=== PATIENT | female | born 1970 | race Caucasian/White ===

== ENCOUNTER 2016-06-07 14:14 | Inpatient (IN) | payer OTHER ==
[2016-06-07 18:34] LABS: Hematocrit 47 % (35-47); Mean Corpuscular Volume 103 fL (80-97); Mean Platelet Volume 10 um3 (7.4-10.4); Red Blood Count 4.53 10^6/ul (4.0-5.4); Red Cell Distribution Width 15 % (10.5-15); White Blood Count 13.2 10^3/ul (3.5-10.8)
[2016-06-07 18:35] LABS: Add Diff/Slide Review? Manual Diff Added; Comments Flag Yes
[2016-06-07 18:38] LABS: Urine Bacteria Absent (Absent); Urine Bilirubin Negative (Negative); Urine Glucose Negative (Negative); Urine Nitrite Negative (Negative)
[2016-06-07 18:55] LABS: Hemoglobin 15.7 g/dl (12.0-16.0)
[2016-06-07 18:56] LABS: Mean Corpuscular Hemoglobin 35 pg (27-31)
[2016-06-07 18:57] LABS: Mean Corpuscular HGB Conc 33 g/dl (31-36)
[2016-06-07 19:14] LABS: Immature Granulocytes 1 % (0-9); Neutrophil % 84 % (38-83); Toxic Granulation 2+
--- NOTE | 2016-06-07 19:23 | RAD ---
INDICATION: Left flank abdominal pain. COMPARISON: There are no prior studies available for comparison. TECHNIQUE: A CT scan of the abdomen and pelvis was performed without intravenous or oral contrast. Contiguous axial sections were obtained from the lung bases through the symphysis pubis. Images were reconstructed in the coronal and sagittal planes. FINDINGS: The lung bases are clear. No pleural effusion is present. The liver is moderately enlarged and decreased in attenuation consistent with fatty infiltration no focal abnormality is seen on this noncontrast study. No calcified gallstones are seen. The spleen is normal in size without focal abnormality. The pancreas is normal in size. There is fluid around the pancreatic tail and adjacent to the spleen and adjacent to the anterior aspect of the left kidney and within the left paracolic gutter. These findings are nonspecific although suggestive possibly of pancreatitis. Recommend clinical correlation. There is also a small hernia of fat in the posterior lateral abdominal wall on the left side adjacent to the left kidney. The adrenal glands and kidneys are normal in size. No hydronephrosis is seen. No renal calculi are noted. No ureteral or bladder calculi are seen. The aorta is normal in caliber with mild calcific plaque present. No significant enlarged retroperitoneal lymph nodes are seen. The stomach, small and large bowel appear nondistended. The appendix is not well visualized. There is no evidence for diverticulitis or colitis. The uterus is retroverted and normal in size. There is a tampon present within the vagina. As noted above there is a small amount of free intraperitoneal fluid in the left upper quadrant. No free intraperitoneal air is seen. No significant focal osseous abnormality is seen. Result of this exam was discussed with the referring clinician. IMPRESSION: 1. THERE IS FREE INTRAPERITONEAL FLUID IN THE LEFT UPPER QUADRANT WHICH TRACKS AROUND THE PANCREATIC TAIL. THIS IS ALSO ADJACENT TO THE SPLEEN AND LEFT KIDNEY. THE FINDINGS ARE NONSPECIFIC ALTHOUGH SUGGESTIVE OF PANCREATITIS. RECOMMEND CLINICAL CORRELATION. IN ADDITION A CONTRAST-ENHANCED CT OF THE ABDOMEN AND PELVIS MAY BE HELPFUL IN FURTHER EVALUATION. 2. MODERATE HEPATOMEGALY AND HEPATIC STEATOSIS.
[2016-06-07] MEDS ORDERED: NS 0.9% 1000 ML* 1,000 ML IV ONE (20:05)
--- NOTE | 2016-06-07 20:11 | ED ---
Jm Griffiths Billy, scribed for Thien Shi MD on 06/07/16 at 1801 . GI/ HPI - HPI Summary HPI Summary: Patient is a 46 year-old female coming to [facility] presenting with constant left flank pain starting yesterday, progressively worse this morning. She states that she had similar pain in the past, but not this severe. Pain severity 10/10 at this time. She reports nausea but denies vomiting. When asked, she states she was unsure if she had hematuria. Denies history of back problems. PMHx of kidney stones last year, for which she was seen at Urgent Care. However, she states that she failed to follow-up. - History of Current Complaint Chief Complaint: EDFlankPain Time Seen by Provider: 06/07/16 18:01 Stated Complaint: POSS KIDNEY STONE Hx Obtained From: Patient Onset/Duration: Started Days Ago, Still Present Timing: Constant Severity: Moderate Current Severity: Moderate Pain Intensity: 10 Location of Pain: Flank - left Associated Signs and Symptoms: Positive: Nausea. Negative: Vomiting Aggravating Factor(s): Nothing Alleviating Factor(s): Nothing - Allergy/Home Medications Allergies/Adverse Reactions: Allergies Allergy/AdvReac Type Severity Reaction Status Date / Time No Known Allergies Allergy Verified 06/07/16 14:28 PMH/Surg Hx/FS Hx/Imm Hx History: Reports: Hx Kidney Stones Psychiatric History: Reports: Hx Substance Abuse Infectious Disease History: No Infectious Disease History: Reports: Hx Hepatitis Denies: Traveled Outside the [place] in Last 30 Days - Family History Known Family History: Positive: Other - aortic aneurysm - Social History Hx Substance Use: Yes - Heroin, last use 15 yrs ago Hx Tobacco Use: Yes Smoking Status (MU): Current Every Day Smoker Review of Systems Positive: Nausea. Negative: Vomiting Positive: flank pain All Other Systems Reviewed And Are Negative: Yes Physical Exam - Summary Physical Exam Summary: VITAL SIGNS: Reviewed. GENERAL: Patient is a well developed and nourished female who is lying comfortable in the stretcher. Patient is not in any acute respiratory distress. HEAD AND FACE: Normocephalic and atraumatic. EYES: PERRLA, EOMI x 2, No injected conjunctiva. EARS: Hearing grossly intact. Ear canals and tympanic membranes are WNL. MOUTH: Oropharynx within normal limits. NECK: Supple, trachea is midline, no adenopathy, no JVD. CHEST: Symmetric, no tenderness at palpation LUNGS: Clear to auscultation bilaterally. No wheezing or crackles. CVS: RRR,, S1 and S2 present, no murmurs or gallops appreciated. ABDOMEN: Soft, positive LUQ tenderness. No signs of distention. Positive bowel sounds. No rebound no guarding, and no masses palpated. No abdominal bruit or pulsations. Positive Left CVAT's EXTREMITIES: FROM in all major joints, no edema, no cyanosis or clubbing. NEURO: Alert and oriented x 3. No acute neurological deficits. Speech is normal. SKIN: Dry and warm Triage Information Reviewed: Yes Vital Signs On Initial Exam: Initial Vitals Temp Pulse Resp BP Pulse Ox 97.9 F 92 16 144/87 100 06/07/16 14:29 06/07/16 14:29 06/07/16 14:29 06/07/16 14:29 06/07/16 14:29 Vital Signs Reviewed: Yes Diagnostics - Vital Signs Vital Signs Temp Pulse Resp BP Pulse Ox 06/07/16 17:13 99.1 F 06/07/16 17:12 97 18 152/90 99 06/07/16 16:16 84 16 144/80 100 06/07/16 15:38 98.4 F 06/07/16 14:29 97.9 F 92 16 144/87 100 - Laboratory Lab Results: Lab Results 06/07/16 06/07/16 Range/Units 18:16 18:16 WBC 13.2 H (3.5-10.8) 10^3/ul RBC 4.53 (4.0-5.4) 10^6/ul Hgb 15.7 (12.0-16.0) g/dl Hct 47 (35-47) % MCV 103 H (80-97) fL MCH 35 H (27-31) pg MCHC 33 (31-36) g/dl RDW 15 (10.5-15) % Plt Count 181 (150-450) 10^3/ul MPV 10 (7.4-10.4) um3 Immature Gran % (Auto) 1 (0-9) % Absolute Neuts (auto) 11.2 H (1.5-7.7) 10^3/ul Absolute Lymphs (auto) 1.3 (1.0-4.8) 10^3/ul Absolute Monos (auto) 0.7 (0-0.8) 10^3/ul Absolute Eos (auto) 0 (0-0.6) 10^3/ul Absolute Basos (auto) 0 (0-0.2) 10^3/ul Absolute Nucleated RBC 0 10^3/ul Neutrophils % 84 H (38-83) % Band Neutrophils % 1 (0-8) % Lymphocytes % 10 L (25-47) % Monocytes % 5 (0-13) % Toxic Granulation 2+ Normal RBC Morphology Not Reportable Urine Color Yellow Urine Appearance Clear Urine pH 6.0 (5-9) Ur Specific [place] 1.017 (1.010-1.030) Urine Protein Negative (Negative) Urine Ketones Negative (Negative) Urine Blood 1+ H (Negative) Urine Nitrate Negative (Negative) Urine Bilirubin Negative (Negative) Urine Urobilinogen Negative (Negative) Ur Leukocyte Esterase Negative (Negative) Urine WBC (Auto) Absent (Absent) Urine RBC (Auto) Trace(0-2/hpf) (Absent) Ur Squamous Epith Cells Present H (Absent) Urine Bacteria Absent (Absent) Urine Glucose Negative (Negative) Result Diagrams: 06/07/16 18:16 Lab Statement: Any lab studies that have been ordered have been reviewed, and results considered in the medical decision making process. - CT abd/pel CT Interpretation Completed By: Radiologist - 1. THERE IS FREE INTRAPERITONEAL FLUID IN THE LEFT UPPER QUADRANT WHICH TRACKS AROUND THE PANCREATIC TAIL. THIS IS ALSO ADJACENT TO THE SPLEEN AND LEFT KIDNEY. THE FINDINGS ARE NONSPECIFIC ALTHOUGH SUGGESTIVE OF PANCREATITIS. RECOMMEND CLINICAL CORRELATION. IN ADDITION A CONTRAST-ENHANCED CT OF THE ABDOMEN AND PELVIS MAY BE HELPFUL IN FURTHER EVALUATION. 2. MODERATE HEPATOMEGALY AND HEPATIC STEATOSIS. Re-Evaluation - Re-Evaluation First Eval Re-Evaluation Time: 20:05 Comment: Plan for admission reviewed and discussed. Imaging results reviewed. GIGU Course/Dx - Course Assessment/Plan: Patient is a 46 year-old female coming to [facility] presenting with constant left flank pain starting yesterday, progressively worse this morning. She states that she had similar pain in the past, but not this severe. Pain severity 10/10 at this time. She reports nausea but denies vomiting. When asked, she states she was unsure if she had hematuria. Denies history of back problems. PMHx of kidney stones last year, for which she was seen at Urgent Care. However, she states that she failed to follow-up. Bloodwork WNL except for WBC of 13.2. UA is negative for acute pathology. CT abd/pel shows acute pancreatitis. We are unable to run chemistries due to lipemic blood. Significantly increased triglycerides may be the cause of the pancreatitis. I discussed with Dr. Chery who will admit to hospitalist services. In the ER course, patient was given IV fluids. Patient is A&Ox3, hemodynamically stable. - Diagnoses Differential Diagnoses - Female: Bowel Obstruction, Constipation, Colitis, Urinary Tract Infection, Ureteral Calculi Provider Diagnoses: Acute pancreatitis - Physician Notifications Discussed Care Of Patient With: Dr. De La Rosa (radiology) @ 1915: CT abd/pel reviewed. Dr. Chery (hospitalist) @ 1949: accepts admission. [facility] @ 1956: they state that they are unable to test chemistries because samples are too lipemic. Discharge - Discharge Plan Condition: Stable Disposition: ADMITTED TO [facility] Referrals: No Primary Care Phys,NOPCP [Primary Care Provider] - The documentation as recorded by the Jm mehta Billy accurately reflects the service I personally performed and the decisions made by me, Thien Shi MD.
[2016-06-07] MEDS ORDERED: Nicotine Inhaler* 10 MG AMP INH PRN (20:26)
[2016-06-07] MEDS ORDERED: Ondansetron INJ* 2 MG/ML VIAL IV PRN (20:26)
[2016-06-07] MEDS ORDERED: Mouth Piece, Nicotine* 1 EACH CARTRIDGE INH PRN (20:44)
[2016-06-07] MEDS ORDERED: LORazepam TAB(*) 1 MG PO SCH (21:00)
[2016-06-07] MEDS: Morphine INJ* 2 MG/ML 1 ML CARPUJECT IV PRN ×2 (21:39→22:18)
[2016-06-07] MEDS ORDERED: Morphine INJ* 2 MG/ML 1 ML CARPUJECT ONE (22:15)
--- NOTE | 2016-06-07 22:31 | HP ---
HISTORY AND PHYSICAL: DATE OF ADMISSION: 06/07/16 PRIMARY CARE PROVIDER: None. ATTENDING PHYSICIAN: Alejandro Chery MD* (dictated by Ila Milligan NP ). CHIEF COMPLAINT: Left flank pain. HISTORY OF PRESENT ILLNESS: Ms. Kaiser is a 46-year-old female with past medical history significant for heroin abuse, alcohol abuse and tobacco abuse who presents to the emergency room with complaints of left flank pain. The patient states that she developed left flank pain approximately a day ago with associated nausea. The patient denies any vomiting. The patient denies any urinary symptoms such as urinary frequency, urgency, or dysuria. The patient states that her flank pain has progressively gotten worse today, so she decided to present to the emergency room for evaluation of her symptoms. While in the emergency room, the patient had a CT scan showing free intraperitoneal fluid in the left upper quadrant, which tracks around the pancreatic tail. The fluid is also adjacent to the spleen and left kidney. The findings are nonspecific, although suggestive of pancreatitis. The patient had a CBC significant for white blood cell count 13.2, hemoglobin of 15.7, hematocrit 47, platelet count 181. The patient had a urinalysis significant for 1+ blood and trace RBC's and squamous epithelial cells present. The patient was unable to have chemistries drawn as the blood sample provided was too lipemic. Based on the patient's presentation and concern for pancreatitis, hospitalists were asked to evaluate the patient for admission. The patient denies fever, chills, chest pain. The patient reports shortness of breath due to pain and nausea for 1 week. PAST MEDICAL HISTORY: 1. Kidney stones. 2. Tobacco abuse. 3. Alcohol abuse. 4. History of heroin use. PAST SURGICAL HISTORY: No previous surgeries. HOME MEDICATIONS: Include Suboxone 8/2 mg sublingual twice daily. ALLERGIES: No known drug allergies. FAMILY HISTORY: The patient has a maternal uncle with a history of heart disease and diabetes mellitus. The patient has a maternal grandfather who had a history of pancreatic cancer and the paternal side of her family has a history of ovarian cancer. SOCIAL HISTORY: The patient smokes approximately half a pack a day. She has a 25- year smoking history. The patient reports drinking alcohol daily, drinking an average of 6 pack of beer daily. The patient occasionally has marijuana. 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 The patient's partner, Rafael Younger, will be her surrogate decision maker in the event she is unable to make decisions for herself. REVIEW OF SYSTEMS: I performed a 14-point review of systems. All the pertinent positives and negatives are mentioned in the history of present illness. Remaining review of systems are negative. PHYSICAL EXAMINATION GENERAL APPEARANCE: The patient is alert, pleasant, appears to be in no acute distress. VITAL SIGNS: Temperature 98.4, heart rate 92, respiratory rate 18, O2 sat 99% on room air, blood pressure 122/81. HEENT: Normocephalic, atraumatic. Pupils are equal and reactive to light. Extraocular movements are intact. NECK: Supple. There is no lymphadenopathy noted. RESPIRATORY: There is no accessory muscle use. Lungs are clear to auscultation bilateral. CARDIOVASCULAR: Regular rate and rhythm. S1 and S2 are present. There are no murmurs, rubs or gallops heard. ABDOMEN: Soft, tender in the left upper quadrant. Bowel sounds present. The patient does have left-sided CVA tenderness. EXTREMITIES: There is no lower extremity edema. DP and PT pulses are 2+ and symmetric. MUSCULOSKELETAL: There is no clubbing or cyanosis noted. The patient exhibits good strength in all extremities. NEUROLOGIC: The patient is alert and oriented x4. Cranial nerves II through XII are grossly intact. PSYCHOLOGICAL: The patient is calm and cooperative. SKIN: There is no rashes or abnormalities seen. DIAGNOSTIC STUDIES/LABORATORY DATA: Again the patient was unable to have a chemistry profile completed due to lipemic blood. White blood cell count 13.2, hemoglobin 15.7, hematocrit 47, and platelet count 181. Urinalysis showed specific gravity of 1.017, 1+ blood, trace rbc's, squamous epithelial cells present. Abdomen and pelvis CT scan from today. Radiologist's impression: There is free intraperitoneal fluid in the left upper quadrant, which tracks around the pancreatic tail. This is also adjacent to the spleen and left kidney. The findings are nonspecific, although suggestive of pancreatitis. Recommend clinical correlation. In addition, a contrast enhanced CT of the abdomen and pelvis may be helpful in further evaluation. Moderate hepatomegaly and hepatic steatosis. IMPRESSION: Ms. Kaiser is a 46-year-old female with past medical history significant for remote history of heroin abuse, tobacco abuse, alcohol abuse, and kidney stones, who presents to the emergency room with a 1-day history of left flank pain. She will be admitted as an inpatient for acute pancreatitis. ASSESSMENT: 1. Pancreatitis. The patient had CT findings consistent with pancreatitis. Due to the patient having high lipemic blood, I suspect the patient's pancreatitis could be caused by significantly increased triglycerides. The patient's pancreatitis could also be related to her alcohol intake. We will have the patient fast overnight and attempt to re-run chemistries including lipase and amylase in the morning. The patient will receive IV hydration and IV pain medication. If the patient does not improve, we will ask GI to consult on the patient. 2. Alcohol abuse. The patient will be placed on a WAM protocol. 3. Tobacco abuse. The patient will have nicotine replacement. 4. History of heroin use. The patient's last used heroin approximately 15 years ago. For now, we will hold her Suboxone while she is receiving pain medications for acute pain. 5. Fluids, electrolytes, nutrition. The patient will be on clear liquids and receive LR at 150 an hour. 6. Code status. Full code. 7. DVT prophylaxis. The patient is at low risk and will be encouraged to ambulate. 8. Disposition. Inpatient. TIME SPENT: The time for this admission was 60 minutes, 35 minutes was spent face- to-face with the patient and family discussing medications, past medical history and the events leading up to her arrival today and performing a physical examination. The case has been reviewed with the attending, Dr. Chery, who agrees with the plan of care. Reviewed by CASANDRA FRANCO 06/19/15 1028 [id number]/[facility] #: [id number] LUIS
[2016-06-08] MEDS: Morphine INJ* 2 MG/ML 1 ML CARPUJECT IV PRN ×2 (02:11→06:44)
[2016-06-08 06:43] LABS: Add Diff/Slide Review? Manual Diff Added; Comments Flag Yes; Hematocrit 39 % (35-47); Hemoglobin 13.4 g/dl (12.0-16.0); Mean Corpuscular HGB Conc 34 g/dl (31-36); Mean Corpuscular Hemoglobin 35 pg (27-31); Mean Corpuscular Volume 103 fL (80-97); Mean Platelet Volume 10 um3 (7.4-10.4); Red Blood Count 3.82 10^6/ul (4.0-5.4); Red Cell Distribution Width 15 % (10.5-15); White Blood Count 8.7 10^3/ul (3.5-10.8)
[2016-06-08 06:48] LABS: ALT 116 U/L (7-52); Alkaline Phosphatase 233 U/L (34-104); Amylase 36 U/L (29-103); BUN/Creatinine Ratio 12.1 (8-20); Blood Urea Nitrogen 4 mg/dL (6-24); C Reactive Protein 40.83 mg/L (< 5.00); CO2 Carbon Dioxide 22 mmol/L (22-32); Calcium 7.7 mg/dL (8.6-10.3); Chloride 98 mmol/L (101-111); EGFR African American 277.2 (>60); EGFR Non-African American 215.5 (>60); Globulin 2.8 g/dL (2-4); Glucose 40 mg/dL (70-100); HDL Cholesterol 12.5 mg/dL; Lipase 212 U/L (11.0-82.0); Sodium 131 mmol/L (133-145); Total Protein 5.8 g/dL (6.4-8.9)
[2016-06-08 07:16] LABS: Cholesterol 736 mg/dL; Triglycerides 1462 mg/dL
[2016-06-08 08:15] LABS: Immature Granulocytes 1 % (0-9); Neutrophil % 79 % (38-83)
[2016-06-08 08:16] LABS: RBC Morphology Normal (Normal)
[2016-06-08] MEDS: Folic Acid TAB* 1 MG PO SCH (08:19)
[2016-06-08] MEDS: Thiamine TAB* 100 MG TAB PO SCH (08:19)
[2016-06-08] MEDS: Multivitamins/Minerals TAB PO SCH (08:19)
[2016-06-08] MEDS ORDERED: HYDROmorphone INJ* 1 MG/ML CARPUJECT SYRINGE ONE (08:47)
[2016-06-08] MEDS ORDERED: HYDROmorphone INJ* 1 MG/ML CARPUJECT SYRINGE IV ONE (09:00)
[2016-06-08] MEDS: HYDROmorphone INJ* 2 MG/ML CARPUJECT SYRINGE IV SLOW PU PRN ×2 (12:07→22:19)
--- NOTE | 2016-06-08 13:09 | PN ---
Subjective Date of Service: 06/08/16 Interval History: Patient seen and examined at bedside. Pt states that she continues to have left sided abdominal and flank pain, the pain has improved with the change in pain medication. Pt denies fever, chills, shortness of breath, chest discomfort, N/V/ D. Family History: Unchanged from Admission Social History: Unchanged from Admission Past Medical History: Unchanged from Admission Objective Active Medications: Acetaminophen (Tylenol Tab*) 650 mg PO Q4H PRN Reason: PAIN Device (Nicotine Mouth Piece*) 1 each INH ONCE PRN Reason: CRAVINGS Folic Acid (Folvite Tab*) 1 mg PO DAILY REGINALD Hydromorphone HCl (Dilaudid Iv*) 2 mg IV SLOW PU Q4H PRN Reason: PAIN Lactated Ringer's (Lactated Ringers 1000 Ml Bag*) 1,000 mls @ 150 mls/hr IV PER RATE REGINALD Lorazepam (Ativan Tab(*)) 0 mg PO .PER W[facility] SCORE [facility] Reason: Protocol Multivitamins/Minerals (Theragran/Minerals Tab*) 1 tab PO DAILY [facility] Nicotine (Nicotine Inhaler*) 10 mg INH Q2H PRN Reason: CRAVING Ondansetron HCl (Zofran Inj*) 4 mg IV Q6H PRN Reason: NAUSEA Thiamine HCl (Vitamin B-1 Tab*) 100 mg PO DAILY [facility] Vital Signs 06/07/16 06/07/16 06/07/16 21:39 21:44 21:51 Temperature 98.1 F Pulse Rate 98 Respiratory 20 20 20 Rate Blood Pressure 149/88 (mmHg) O2 Sat by Pulse 99 Oximetry 06/08/16 06/08/16 06/08/16 00:21 02:11 02:12 Temperature 100.5 F 99.3 F Pulse Rate 89 94 Respiratory 18 18 18 Rate Blood Pressure 132/76 144/78 (mmHg) O2 Sat by Pulse 96 97 Oximetry 06/08/16 06/08/16 06/08/16 03:11 04:20 06:44 Temperature 98.2 F Pulse Rate 86 Respiratory 16 18 18 Rate Blood Pressure 138/82 (mmHg) O2 Sat by Pulse 100 Oximetry 06/08/16 06/08/16 06/08/16 07:44 08:00 08:14 Temperature 98.0 F Pulse Rate 106 Respiratory 18 18 12 Rate Blood Pressure 139/65 (mmHg) O2 Sat by Pulse Oximetry 06/08/16 12:22 Temperature 98.4 F Pulse Rate 99 Respiratory 14 Rate Blood Pressure 124/84 (mmHg) O2 Sat by Pulse 100 Oximetry Oxygen Devices in Use Now: None Appearance: NAD, laying in bed. Eyes: No Scleral Icterus, PERRLA Ears/Nose/Mouth/Throat: NL Teeth, Lips, Gums, Mucous Membranes Moist Neck: NL Appearance and Movements; NL JVP, Trachea Midline Respiratory: Symmetrical Chest Expansion and Respiratory Effort, Clear to Auscultation Cardiovascular: NL Sounds; No Murmurs; No JVD, RRR Abdominal: - - Bowel sounds hypoactive, Abdomen soft, tender in the left upper quad and slightly distended. Positive for CVa tenderness on the left. Extremities: No Edema Skin: No Rash or Ulcers Neurological: Alert and Oriented x 3, NL Muscle Strength and Tone Lines/Tubes/Other Access: Clean, Dry and Intact Peripheral IV - x 2, site benign Nutrition: Taking PO's Result Diagrams: 06/08/16 05:41 06/08/16 05:41 Additional Lab and Data: Assess/Plan/Problems-Billing Assessment: Ms. Kaiser is a 46 yo female with PMH significant for remote history of heroin abuse and alcohol abuse who presented to the emergency room with complaints of left flank pain and was found to have pancreatitis. - Patient Problems (1) Pancreatitis Code(s): K85.90 - ACUTE PANCREATITIS WITHOUT NECROSIS OR INFECTION, UNSP SNOMED Code(s): 36401523 Comment: - Unable to get labs in the ER d/t Lipemic blood - Blood this AM was hemolized, will recheck labs now - Suspect this could be related to ETOH, elevated lipids - If LFTs are up on redraw, will get a GB ultrasound - If not improving will ask GI to consult (2) Alcohol abuse Code(s): F10.10 - ALCOHOL ABUSE, UNCOMPLICATED SNOMED Code(s): 09263074 Comment: - WAM score 1-4 - Continue WAM protocol for now (3) Tobacco abuse Code(s): Z72.0 - TOBACCO USE SNOMED Code(s): 104801921 Comment: - Continue nicotine replacement (4) History of heroin abuse Code(s): Z87.898 - PERSONAL HISTORY OF OTHER SPECIFIED CONDITIONS SNOMED Code( s): 899667662 Comment: - Hold Suboxone while Pt has acute pain and needs narcotics - Resume at discharge (5) DVT prophylaxis Code(s): KSD6646 - SNOMED Code(s): 919553682 Comment: - Encourage ambulation (6) Full code status Code(s): Z78.9 - OTHER SPECIFIED HEALTH STATUS SNOMED Code(s): 038983575 Status and Disposition: Inpatient. Estimated length of stay > 2 day. Discharge to home when medically stable.
[2016-06-08 13:54] LABS: ALT 111 U/L (7-52); Alkaline Phosphatase 254 U/L (34-104); Amylase 31 U/L (29-103); BUN/Creatinine Ratio 8.6 (8-20); Blood Urea Nitrogen 3 mg/dL (6-24); CO2 Carbon Dioxide 25 mmol/L (22-32); Calcium 8.1 mg/dL (8.6-10.3); Chloride 99 mmol/L (101-111); Cholesterol 562 mg/dL; EGFR Non-African American 201.4 (>60); Globulin 2.9 g/dL (2-4); Glucose 138 mg/dL (70-100); HDL Cholesterol 15.7 mg/dL; LDL Cholesterol 479 mg/dL; Lipase 154 U/L (11.0-82.0); Sodium 132 mmol/L (133-145); Total Protein 5.9 g/dL (6.4-8.9); Triglycerides 336 mg/dL
[2016-06-08] MEDS ORDERED: HYDROmorphone INJ* 1 MG/ML CARPUJECT SYRINGE IV SLOW PU ONE (15:04)
--- NOTE | 2016-06-08 15:38 | RAD ---
Indication: Pancreatitis. Assess for cholelithiasis. Comparison: June 07, 2016 CT. Technique: RIGHT upper quadrant ultrasound. Report: 19.2 cm cephalocaudal liver is echogenic consistent with fatty infiltration. No focal hepatic lesions or intrahepatic biliary dilatation evident. Minimally prominent 6.5 mm common bile duct. No intraductal stones visualized. Distended gallbladder measuring up to 11.5 x 2.8 x 3.9 cm with normal 1.7 mm wall is without pathologic finding. Negative for sonographic Huntley's sign. The pancreatic tail is partially obscured due to bowel gas with the visualized pancreas unremarkable. Negative for pancreatic duct dilatation. Negative for ascites. 11.0 x 4.6 x 5.8 cm RIGHT kidney with normal cortical echogenicity is remarkable for mild caliectasis. No conspicuous RIGHT renal stones . Negative for perinephric fluid. IMPRESSION: 1. Negative for cholelithiasis or sonographic findings of acute cholecystitis. 2. Minimally prominent 6.5 mm common bile duct. No intraductal stones visualized. 3. No sonographic abnormality of the partially visualized pancreas evident. 4. Negative for ascites. 5. Mild caliectasis of the RIGHT kidney.
[2016-06-08] MEDS: Nicotine PATCH 14 MG/24 HR* PATCH TRANSDERM SCH (15:39)
[2016-06-08] MEDS: Acetaminophen TAB* 325 MG PO PRN (18:08)
[2016-06-08] MEDS: Nicotine Patch Removal NOTE FOLLOW UP SCH (20:33)
[2016-06-09] MEDS: Acetaminophen TAB* 325 MG PO PRN ×4 (02:06→20:31)
[2016-06-09 06:14] LABS: Albumin 2.7 g/dL (3.2-5.2); EGFR African American 250.7 (>60); EGFR Non-African American 194.9 (>60); Total Protein 5.7 g/dL (6.4-8.9)
[2016-06-09 07:32] LABS: BUN/Creatinine Ratio 2.8 (8-20); Potassium 3.1 mmol/L (3.5-5.0)
[2016-06-09] MEDS: Folic Acid TAB* 1 MG PO SCH (07:46)
[2016-06-09] MEDS: Multivitamins/Minerals TAB PO SCH (07:46)
[2016-06-09] MEDS: Thiamine TAB* 100 MG TAB PO SCH (07:46)
[2016-06-09] MEDS: Nicotine PATCH 14 MG/24 HR* PATCH TRANSDERM SCH (08:00)
[2016-06-09] MEDS ORDERED: Potassium Chlor TAB* 20 MEQ TAB.ER PO ONE (10:48)
--- NOTE | 2016-06-09 14:39 | PN ---
Subjective Date of Service: 06/09/16 Interval History: Pt is feeling better. She has been using tylenol alone for pain. She states she feels mild discomfort in the epigastrum and mid back. No nausea or vomiting. No BMs but she is passing quite a bit of gas. She states her abdominal discomfort is improved after passing gas. Objective Active Medications: Acetaminophen (Tylenol Tab*) 650 mg PO Q4H PRN PRN Reason: PAIN Last Admin: 06/09/16 13:50 Dose: 650 mg Buprenorphine/Naloxone (Suboxone 8-2 Mg Sl Tab*) 1 tab.sl SL BID [facility] Device (Nicotine Mouth Piece*) 1 each INH ONCE PRN PRN Reason: CRAVINGS Last Admin: 06/07/16 23:27 Dose: 1 each Folic Acid (Folvite Tab*) 1 mg PO DAILY [facility] Last Admin: 06/09/16 07:46 Dose: 1 mg Lorazepam (Ativan Tab(*)) 0 mg PO .PER WAM SCORE [facility] PRN Reason: Protocol Multivitamins/Minerals (Theragran/Minerals Tab*) 1 tab PO DAILY [facility] Last Admin: 06/09/16 07:46 Dose: 1 tab Nicotine (Nicotine Inhaler*) 10 mg INH Q2H PRN PRN Reason: CRAVING Last Admin: 06/07/16 23:27 Dose: 10 mg Nicotine (Nicotine Patch 14 Mg/24 Hr*) 1 patch TRANSDERM DAILY@0800 [facility] Last Admin: 06/09/16 08:00 Dose: Not Given Ondansetron HCl (Zofran Inj*) 4 mg IV Q6H PRN PRN Reason: NAUSEA Pharmacy Profile Note (Nicotine Patch Removal Note*) 1 note FOLLOW UP 2100 [facility] Last Admin: 06/08/16 20:33 Dose: 1 note Thiamine HCl (Vitamin B-1 Tab*) 100 mg PO DAILY [facility] Last Admin: 06/09/16 07:46 Dose: 100 mg Vital Signs 06/08/16 06/08/16 06/08/16 15:08 15:41 16:08 Temperature 98.5 F Pulse Rate 82 Respiratory 18 16 16 Rate Blood Pressure 122/69 (mmHg) O2 Sat by Pulse 95 Oximetry 06/08/16 06/08/16 06/08/16 20:00 22:19 23:19 Temperature Pulse Rate Respiratory 16 18 16 Rate Blood Pressure (mmHg) O2 Sat by Pulse Oximetry 06/09/16 06/09/16 06/09/16 00:00 00:07 04:00 Temperature 98.4 F Pulse Rate 84 Respiratory 16 16 16 Rate Blood Pressure 123/67 (mmHg) O2 Sat by Pulse 96 Oximetry 06/09/16 06/09/16 04:17 07:48 Temperature 98.0 F 97.8 F Pulse Rate 73 80 Respiratory 16 17 Rate Blood Pressure 98/64 150/74 (mmHg) O2 Sat by Pulse 93 98 Oximetry Oxygen Devices in Use Now: None Appearance: Middle aged female sitting up in bed, NAD Eyes: No Scleral Icterus Ears/Nose/Mouth/Throat: Mucous Membranes Moist Respiratory: Symmetrical Chest Expansion and Respiratory Effort, Clear to Auscultation Cardiovascular: NL Sounds; No Murmurs; No JVD, RRR, No Edema Abdominal: - - BS+ soft, ND, mildly tender to palpation in the epigastrum Extremities: No Clubbing, Cyanosis Skin: No Rash or Ulcers, No Nodules or Sclerosis Neurological: Alert and Oriented x 3 Result Diagrams: 06/08/16 05:41 06/09/16 05:16 Additional Lab and Data: Assess/Plan/Problems-Billing Ms. Kaiser is a 46 yo female with PMHx significant for remote history of heroin abuse, HCV (cleared the infection wihtout treatment) and alcohol abuse who presented to the emergency room with complaints of left flank pain and was found to have pancreatitis. - Patient Problems (1) Gallstone pancreatitis Current Visit: Yes Status: Acute Code(s): K85.10 - BILIARY ACUTE PANCREATITIS WITHOUT NECROSIS OR INFECTION SNOMED Code(s): 72709648 Comment: I am most suspicous that the pancreatitis was seconary to passage of a gallstone or sludge based on the elevated LFTs, mildly prominent CBD and evidence of pancreatitis chemically and on imaging. (2) Alcohol abuse Current Visit: Yes Status: Acute Code(s): F10.10 - ALCOHOL ABUSE, UNCOMPLICATED SNOMED Code(s): 42990491 Comment: Pt is not scoring on the WAM protocol. Stop the WAM protocol. (3) Heroin abuse Current Visit: Yes Status: Acute Code(s): F11.10 - OPIOID ABUSE, UNCOMPLICATED SNOMED Code(s): 154228330 Comment: Pt has a distant h/o heroin abuse. Currently she is on suboxone. Will resume usual dose of suboxone today. (4) Tobacco abuse Current Visit: Yes Status: Acute Code(s): Z72.0 - TOBACCO USE SNOMED Code( s): 996184904 Comment: Continue nicotine replacement therapy. Encourage smoking cessation. (5) DVT prophylaxis Current Visit: Yes Status: Acute Code(s): EMU4711 - SNOMED Code(s): 137899185 Comment: ambulation (6) Full code status Current Visit: Yes Status: Acute Code(s): Z78.9 - OTHER SPECIFIED HEALTH STATUS SNOMED Code(s): 546946944 Status and Disposition: .
[2016-06-09] MEDS: Nicotine Patch Removal NOTE FOLLOW UP SCH (20:14)
[2016-06-09] MEDS: Buprenorphine/Naloxone 8-2 MG SL TAB* 1 TAB SL SCH (20:31)
[2016-06-10] MEDS: Acetaminophen TAB* 325 MG PO PRN (04:59)
[2016-06-10 05:23] LABS: Hematocrit 41 % (35-47); Hemoglobin 12.9 g/dl (12.0-16.0); Mean Corpuscular HGB Conc 32 g/dl (31-36); Mean Corpuscular Hemoglobin 34 pg (27-31); Mean Corpuscular Volume 109 fL (80-97); Mean Platelet Volume 9 um3 (7.4-10.4); Red Blood Count 3.76 10^6/ul (4.0-5.4); Red Cell Distribution Width 16 % (10.5-15); White Blood Count 6.6 10^3/ul (3.5-10.8)
[2016-06-10 05:28] LABS: BUN/Creatinine Ratio 5.3 (8-20); Calcium 8.9 mg/dL (8.6-10.3); EGFR African American 235.5 (>60); EGFR Non-African American 183.1 (>60); Potassium 3.8 mmol/L (3.5-5.0)
[2016-06-10 05:38] VITALS: BP 136/75
--- NOTE | 2016-06-10 10:02 | PN ---
Subjective Date of Service: 06/10/16 Interval History: Pt is feeling well. She has no abdominal pain. Minimal L flank tenderness. She states she has been slightly afraid of eating but when she has eaten she has not had any pain. She feels ready to go home. Objective Active Medications: Acetaminophen (Tylenol Tab*) 650 mg PO Q4H PRN PRN Reason: PAIN Last Admin: 06/10/16 04:59 Dose: 650 mg Buprenorphine/Naloxone (Suboxone 8-2 Mg Sl Tab*) 1 tab.sl SL BID [facility] Last Admin: 06/09/16 20:31 Dose: 1 tab.sl Device (Nicotine Mouth Piece*) 1 each INH ONCE PRN PRN Reason: CRAVINGS Last Admin: 06/07/16 23:27 Dose: 1 each Folic Acid (Folvite Tab*) 1 mg PO DAILY [facility] Last Admin: 06/09/16 07:46 Dose: 1 mg Lorazepam (Ativan Tab(*)) 0 mg PO .PER WAM SCORE [facility] PRN Reason: Protocol Multivitamins/Minerals (Theragran/Minerals Tab*) 1 tab PO DAILY [facility] Last Admin: 06/09/16 07:46 Dose: 1 tab Nicotine (Nicotine Inhaler*) 10 mg INH Q2H PRN PRN Reason: CRAVING Last Admin: 06/07/16 23:27 Dose: 10 mg Nicotine (Nicotine Patch 14 Mg/24 Hr*) 1 patch TRANSDERM DAILY@0800 [facility] Last Admin: 06/09/16 08:00 Dose: Not Given Ondansetron HCl (Zofran Inj*) 4 mg IV Q6H PRN PRN Reason: NAUSEA Pharmacy Profile Note (Nicotine Patch Removal Note*) 1 note FOLLOW UP 2100 [facility] Last Admin: 06/09/16 20:14 Dose: Not Given Thiamine HCl (Vitamin B-1 Tab*) 100 mg PO DAILY [facility] Last Admin: 06/09/16 07:46 Dose: 100 mg Vital Signs 06/09/16 06/09/16 06/09/16 15:43 19:40 20:00 Temperature 97.7 F 98.4 F Pulse Rate 83 85 Respiratory 16 16 Rate Blood Pressure 141/77 140/89 (mmHg) O2 Sat by Pulse 99 99 Oximetry 06/09/16 06/09/16 06/09/16 20:31 22:31 23:48 Temperature 98.1 F Pulse Rate 82 Respiratory 16 16 16 Rate Blood Pressure 138/73 (mmHg) O2 Sat by Pulse 97 Oximetry 06/10/16 06/10/16 06/10/16 01:03 03:29 05:36 Temperature 98.0 F 98.3 F 98.1 F Pulse Rate 79 75 71 Respiratory 16 16 16 Rate Blood Pressure 134/82 142/81 136/75 (mmHg) O2 Sat by Pulse 97 97 94 Oximetry Oxygen Devices in Use Now: None Appearance: Middle aged female sitting up in bed, NAD Eyes: No Scleral Icterus Ears/Nose/Mouth/Throat: Mucous Membranes Moist Respiratory: Symmetrical Chest Expansion and Respiratory Effort, Clear to Auscultation Cardiovascular: NL Sounds; No Murmurs; No JVD, RRR, No Edema Abdominal: NL Sounds; No Tenderness; No Distention Extremities: No Clubbing, Cyanosis Skin: No Rash or Ulcers, No Nodules or Sclerosis Neurological: Alert and Oriented x 3 Result Diagrams: 06/10/16 04:49 06/10/16 04:49 Additional Lab and Data: Assess/Plan/Problems-Billing Ms. Kaiser is a 46 yo female with PMHx significant for remote history of heroin abuse, [facility] and alcohol abuse who presented to the emergency room with complaints of left flank pain and was found to have pancreatitis. - Patient Problems (1) Gallstone pancreatitis Current Visit: Yes Status: Acute Code(s): K85.10 - BILIARY ACUTE PANCREATITIS WITHOUT NECROSIS OR INFECTION SNOMED Code(s): 34153826 Comment: Pt is clinically much improved. She still has a mildly elevated lipase but has been tolerating a low fat diet without issues. We discussed avoiding EtOH at least until the pancreatitis has resolved completely. She will monitor how she feels after eating and if she has increased pain she will back down her diet. Will get follow up labs next week to ensure the lipase has returned to normal. (2) Alcohol abuse Current Visit: Yes Status: Acute Code(s): F10.10 - ALCOHOL ABUSE, UNCOMPLICATED SNOMED Code(s): 15668586 Comment: Pt states she is going to avoid EtOH for now-have encouraged ongoing abstinence. (3) Heroin abuse Current Visit: Yes Status: Acute Code(s): F11.10 - OPIOID ABUSE, UNCOMPLICATED SNOMED Code(s): 366405901 Comment: Continue suboxone. (4) Tobacco abuse Current Visit: Yes Status: Acute Code(s): Z72.0 - TOBACCO USE SNOMED Code( s): 955191084 Comment: Continue nicotine replacement therapy. Encourage smoking cessation. (5) DVT prophylaxis Current Visit: Yes Status: Acute Code(s): [id number] - SNOMED Code(s): 777041784 Comment: ambulation (6) Full code status Current Visit: Yes Status: Acute Code(s): Z78.9 - OTHER SPECIFIED HEALTH STATUS SNOMED Code(s): 651623227 Status and Disposition: d/c home
[2016-06-10] MEDS: Thiamine TAB* 100 MG TAB PO SCH (11:04)
[2016-06-10] MEDS: Multivitamins/Minerals TAB PO SCH (11:04)
[2016-06-10] MEDS: Buprenorphine/Naloxone 8-2 MG SL TAB* 1 TAB SL SCH (11:04)
[2016-06-10] MEDS: Folic Acid TAB* 1 MG PO SCH (11:04)
[2016-06-10] MEDS: Nicotine PATCH 14 MG/24 HR* PATCH TRANSDERM SCH (11:05)
--- NOTE | 2016-06-10 19:41 | CONS ---
CONSULTATION NOTE: DATE OF CONSULT: 06/10/16 HISTORY OF PRESENT ILLNESS: I was asked by the hospitalist to see Ms. Kaiser for gallstone pancreatitis. She presented to the hospital 3 days ago with left abdominal and flank pain. She indicated that it radiated through to the left upper quadrant, clean through to the back. She has had vague things similar to this before, although never quite exactly like this. She does have a history of heroin and alcohol abuse. She has never had any surgery on the abdomen nor any other surgeries for that matter. She has not had a change in the color of the stool or urine. MEDICATIONS: She is currently on Suboxone as an outpatient. PHYSICAL EXAMINATION: She is a well-developed, well-nourished female, appears reasonably fit and energetic. Color is good. She is not diaphoretic. She is not jaundiced. Abdomen is soft, really not tender at all, not particularly distended. No palpable masses or hernias. No peritonitis or guarding. No Huntley's sign. DIAGNOSTIC STUDIES/LAB DATA: Review of her testing reveals a CT scan consistent with pancreatitis and a gallbladder ultrasound that does not indicate any cholelithiasis. There just is some hepatic steatosis and a mildly prominent common bile duct. She had an elevation of her white count on admission, which has come back to normal. She has had elevated bilirubin and transaminases, which are now trending back down. Her lipase was elevated and also coming back down. IMPRESSION: A 46-year-old female with history of drug and alcohol abuse with evidence of pancreatitis. Based on the elevated liver chemistries and the slightly dilated common duct, it was suspected that this was gallstone pancreatitis, although one cannot be 100% certain. I discussed this with her at some length and the general recommendation is after bouts of gallstone pancreatitis, to perform laparoscopic cholecystectomy to prevent additional recurrences. I have discussed the pros and cons of the surgery, the method of the surgery, the rationale and the risks, and I would recommend to see her in the office in the near future and we can discuss the potential of arranging laparoscopic cholecystectomy. [id number]/[facility] #: [id number] MTDD
--- NOTE | 2016-06-11 07:30 | DS ---
DISCHARGE SUMMARY: DATE OF ADMISSION: 06/07/16 DATE OF DISCHARGE: 06/10/16 PRIMARY CARE PROVIDER: To be established with Curtis Freeman NP PRINCIPAL DIAGNOSES: 1. Probable gallstone pancreatitis. 2. Tobacco abuse. 3. Alcohol abuse. 4. History of heroin abuse. DISCHARGE MEDICATIONS: 1. Suboxone 8/2 mg sublingual b.i.d. 2. Tylenol 650 mg p.o. q.4 hours p.r.n. pain. HOSPITAL COURSE: Ms. Kaiser is a 46-year-old female with a history of tobacco abuse, alcohol abuse, and a past history of heroin abuse, currently on Suboxone , who presents to the emergency room with complaints of abdominal pain. The patient developed left flank pain approximately 1 day prior to admission with associated nausea. She had a CT scan performed in the emergency room, which revealed findings consistent with pancreatitis. Additionally, her lipase was elevated at 254. The patient was admitted for acute pancreatitis. In reviewing the patient's labs and ultimately, the gallbladder ultrasound, it was suspected the patient likely suffered from gallstone pancreatitis. Her common bile duct was found to be mildly prominent on the gallbladder ultrasound. No stones were identified. The patient slowly improved in terms of her pancreatitis. Her lipase trended down to 127 on the day of discharge; however, clinically she had no pain even with eating a regular diet. The patient at this point is anxious to go home. She has been instructed to continue to monitor her symptoms and if her abdominal pain returns or worsens, she will back down to a clear liquid diet and slowly advance back up to a regular diet. I did speak with Dr. Rico from [facility] about the diagnosis of gallstone pancreatitis and the fact that the patient wanted to wait to have surgery done until is more convenient for her. 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 It is felt given the fact the patient clinically is improving and the fact that no gallstones were seen in the gallbladder that she is a safe candidate to be discharged home and follow up as an outpatient. I stressed the importance of this to her. Additionally, the patient will need to follow up with her new primary care provider and again at that appointment, this consideration will need to be stressed to the patient to follow up with [facility]. While gallstone pancreatitis is felt to be the most likely cause of her acute pancreatitis and elevated liver enzymes, this could represent alcohol hepatitis. The patient does admit to drinking 3 to 6 beers per day. Her LFTs were mildly elevated and have been trending down over the course of her hospitalization. She will need a BMP and lipase level on 06/14/16. The patient will need to continue to follow her liver enzymes as well. I have asked that she abstain from drinking alcohol over the next several weeks. She states that she believes that she will be able to do this. Again, at the time of discharge, the patient has no abdominal pain whatsoever and has been tolerating a regular diet. FOLLOWUP CONCERNS: The patient is being discharged to home today, 06/10/16. The patient is to follow up with Curtis Freeman NP, on 06/22/16, at 2:30 p.m. ACTIVITY LEVEL: As tolerated. DIET: Low fat. CONDITION ON DISCHARGE: Stable. TIME SPENT: Thirty-five minutes was spent discharging this patient. CC: Curtis Freeman NP * [id number]/[facility] #: [id number] MTDD
== END 2016-06-10 12:25 | disposition home or self-care (01) | DRG 282 ==
LOC: ED 14:14 → MED 20:03
PROVIDERS: ADMIT Internal Medicine; ATTEND Hospitalist
DX: K85.10 Biliary acute pancreatitis without necrosis or infection (principal); F10.10 Alcohol abuse, uncomplicated; F17.210 Nicotine dependence, cigarettes, uncomplicated; Z87.898 Personal history of other specified conditions; Z79.899 Other long term (current) drug therapy; Z82.49 Family history of ischemic heart disease and other diseases of the circulatory system; Z83.3 Family history of diabetes mellitus; Z80.41 Family history of malignant neoplasm of ovary; Z80.0 Family history of malignant neoplasm of digestive organs
CPT/HCPCS: 36415; 74176; 76705; 80048; 80053; 80061; 81003; 81015; 82150; 83690; 85025; 86140; 99406; A9270-GY; J1170; J2270

== ENCOUNTER → 2017-02-15 09:16 | Emergency (ER) | payer OTHER ==
[~2017-02-15 09:16] MED LIST: Dextrose 50% Syringe 50 ML* 25 GM/50 ML SYRINGE IV PUSH ONE; Dextrose 50% Syringe 50 ML* 25 GM/50 ML SYRINGE ONE; Ketorolac INJ* 30 MG/ML 1 ML VIAL IV PUSH ONE; Ketorolac INJ* 30 MG/ML 1 ML VIAL ONE; NS 0.9% 1000 ML* 1,000 ML IV ONE; Ondansetron INJ* 2 MG/ML VIAL IV ONE; fentaNYL* 50 MCG/ML 2 ML VIAL (100 MCG VIAL) IV SLOW PU ONE
[2017-02-15 10:56] LABS: Hematocrit 40 % (35-47); Mean Corpuscular Volume 107 fL (80-97); Mean Platelet Volume 9 um3 (7.4-10.4); Red Blood Count 3.73 10^6/ul (4.0-5.4); Red Cell Distribution Width 15 % (10.5-15); White Blood Count 4.7 10^3/ul (3.5-10.8)
[2017-02-15 10:57] LABS: Comments Flag Yes
[2017-02-15 10:59] LABS: Hemoglobin 13.3 g/dl (12.0-16.0); Mean Corpuscular Hemoglobin 36 pg (27-31)
[2017-02-15 11:00] LABS: Mean Corpuscular HGB Conc 34 g/dl (31-36)
[2017-02-15 11:01] LABS: Add Diff/Slide Review? Manual Diff Added
[2017-02-15 11:31] LABS: Eosinophils % 2 % (0-6); Neutrophil % 59 % (38-83)
[2017-02-15 11:32] LABS: Macrocytosis 1+
[2017-02-15 11:39] LABS: ALT 88 U/L (7-52); Albumin 4.5 g/dL (3.2-5.2); Alkaline Phosphatase 230 U/L (34-104); Amylase 51 U/L (29-103); C Reactive Protein < 1.00 mg/L (< 5.00); Chloride 83 mmol/L (101-111); Glucose 56 mg/dL (70-100); Lipase 375 U/L (11.0-82.0); Sodium 116 mmol/L (133-145); Total Protein 6.5 g/dL (6.4-8.9)
[2017-02-15 11:40] LABS: Calcium 8.9 mg/dL (8.6-10.3)
--- NOTE | 2017-02-15 12:25 | RAD ---
HISTORY: Right upper quadrant pain COMPARISONS: June 08, 2016 TECHNIQUE: Multiple transverse and longitudinal ultrasound images were obtained of the right upper quadrant of the abdomen using grayscale and color Doppler imaging. FINDINGS: LIVER: The liver is diffusely echogenic and coarse in echotexture, with decreased acoustic transmission. The liver measures 22 cm in long axis.. There is normal hepatopedal flow of the portal vein on Doppler imaging. BILIARY TREE: There is no intrahepatic or extrahepatic biliary dilatation. The common duct measures 0.5 cm. GALLBLADDER: The gallbladder is well-visualized. There is no cholelithiasis, gallbladder wall thickening, pericholecystic fluid, or sonographic Huntley sign. PANCREAS: The head of the pancreas is unremarkable. The tail of the pancreas is not well visualized secondary to overlying bowel gas. RIGHT KIDNEY: The right kidney is normal in shape, size, contour, and echogenicity. There is no hydronephrosis or nephrolithiasis. The right kidney measures 11.8 x 4.4 x 6.2 cm. AORTA AND IVC: The aorta and IVC are unremarkable. FLUID: There are no pleural effusions. There is no free fluid within the hepatorenal recess. OTHER FINDINGS: None. IMPRESSION: HEPATOMEGALY WITH FATTY INFILTRATION OF THE LIVER.
[2017-02-15 13:22] LABS: HDL Cholesterol 23.4 mg/dL
[2017-02-15 13:25] LABS: Cholesterol 1208 mg/dL; Triglycerides 9677 mg/dL
[2017-02-15 13:48] LABS: Calcium 8.3 mg/dL (8.6-10.3); Chloride 83 mmol/L (101-111); Glucose 48 mg/dL (70-100); Sodium 115 mmol/L (133-145)
[2017-02-15 14:08] LABS: LDL Cholesterol Direct 94 mg/dL
[2017-02-15 14:26] LABS: POC Chloride 100 mmol/L (98-109); POC Sodium 129 mmol/L (138-146)
[2017-02-15 14:27] LABS: EGFR African American 170.8 (>60); EGFR Non-African American 132.8 (>60); Manual Entry Verification MD; POC CO2 Carbon Dioxide 33 mmol/L (24-29); POC Glucose 101 mg/dL (70-105)
--- NOTE | 2017-02-15 15:26 | ED ---
Aris Griffiths Thomas, scribed for Thien Shi MD on 02/15/17 at 1010 . Abdominal Pain/Female - HPI Summary HPI Summary: The pt is a 47 y/o M presenting to the ED c/o RUQ abd pain that began last week. The patient has a Hx of gallstones with pancreatitis and she says that her current pain is similar to that pain. The pt rates the pain 9/10. The pain radiates to her back. 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 The pain is aggravated by eating and is alleviated by nothing. Pt denies vomiting, diarrhea, constipation, fevers, and chills. The patients gallbladder has not yet been removed. The patient is accompanied by a male family member. - History of Current Complaint Chief Complaint: EDAbdPain Stated Complaint: ABD PAIN/NAUSEA Time Seen by Provider: 02/15/17 09:36 Hx Obtained From: Patient, Family/Balance Truing Inspector - male family member present Onset/Duration: Lasting Weeks - onset 1 week ago, Still Present Timing: Constant Severity Currently: Severe Pain Intensity: 9 Pain Scale Used: 0-10 Numeric Location: Discrete At: RUQ Radiates: Yes Radiates to: Back Aggravating Factor(s): Food Alleviating Factor(s): Nothing Associated Signs and Symptoms: Positive: Nausea. Negative: Fever, Constipation , Vomiting, Diarrhea, Other: - NEGATIVE: chills Simlar Episode/Dx as:: Pain is similar to prior gallstone with pancreatitis pain Allergies/Adverse Reactions: Allergies Allergy/AdvReac Type Severity Reaction Status Date / Time No Known Allergies Allergy Verified 06/07/16 14:28 PMH/Surg Hx/FS Hx/Imm Hx Previously Healthy: No History: Reports: Hx Kidney Stones Psychiatric History: Reports: Hx Substance Abuse - Surgical History Surgery Procedure, Year, and Place: None. - Immunization History Date of Tetanus Vaccine: unknown Date of Influenza Vaccine: fall 2015 Immunizations Up to Date: Yes Infectious Disease History: No Infectious Disease History: Reports: Hx Hepatitis Denies: Traveled Outside the [place] in Last 30 Days - Family History Known Family History: Positive: Other - aortic aneurysm - Social History Alcohol Use: Daily Hx Substance Use: Yes - Heroin, last use 15 yrs ago Substance Use Type: Reports: Marijuana Hx Tobacco Use: Yes Smoking Status (MU): Current Every Day Smoker Review of Systems Negative: Fever, Chills Positive: Abdominal Pain - RUQ pain that radiates to back, Nausea. Negative: Vomiting, Diarrhea, Other - NEGATIVE: constipation All Other Systems Reviewed And Are Negative: Yes Physical Exam - Summary Physical Exam Summary: VITAL SIGNS: Reviewed. GENERAL: Patient is a well-developed and nourished female who is lying comfortable in the stretcher. Patient is not in any acute respiratory distress. HEAD AND FACE: Normocephalic and atraumatic. EYES: PERRLA, EOMI x 2, No injected conjunctiva. EARS: Hearing grossly intact. Ear canals and tympanic membranes are WNL. MOUTH: Oropharynx within normal limits. NECK: Supple, trachea is midline, no adenopathy, no JVD. CHEST: Symmetric, no tenderness at palpation LUNGS: Clear to auscultation bilaterally. No wheezing or crackles. CVS: RRR, S1 and S2 present, no murmurs or gallops appreciated. ABDOMEN: There is tenderness in the RUQ, LUQ and mid epigastric regions. Soft. No signs of distention. Positive bowel sounds. No rebound no guarding, and no masses palpated. No abdominal bruit or pulsations. EXTREMITIES: FROM in all major joints, no edema, no cyanosis or clubbing. NEURO: Alert and oriented x 3. No acute neurological deficits. Speech is normal. SKIN: Dry and warm Triage Information Reviewed: Yes Vital Signs On Initial Exam: Initial Vitals Temp Pulse Resp BP Pulse Ox 97.4 F 82 20 174/99 98 02/15/17 09:29 02/15/17 09:29 02/15/17 09:29 02/15/17 09:29 02/15/17 09:29 Vital Signs Reviewed: Yes - [place] Coma Scale Coma Scale Total: 15 Diagnostics - Vital Signs Vital Signs Temp Pulse Resp BP Pulse Ox 02/15/17 09:29 97.4 F 82 20 174/99 98 - Laboratory Lab Results: Lab Results 02/15/17 02/15/17 02/15/17 Range/Units 10:35 10:35 13:00 WBC 4.7 (3.5-10.8) 10^3/ul RBC 3.73 L (4.0-5.4) 10^6/ul Hgb 13.3 (12.0-16.0) g/dl Hct 40 (35-47) % MCV 107 H (80-97) fL MCH 36 H (27-31) pg MCHC 34 (31-36) g/dl RDW 15 (10.5-15) % Plt Count 192 (150-450) 10^3/ul MPV 9 (7.4-10.4) um3 Absolute Neuts (auto) Not Reportable Absolute Lymphs (auto) Not Reportable Absolute Monos (auto) Not Reportable Absolute Eos (auto) Not Reportable Absolute Basos (auto) Not Reportable Absolute Nucleated RBC Not Reportable Neutrophils % 59 (38-83) % Lymphocytes % 31 (25-47) % Monocytes % 8 (0-13) % Eosinophils % 2 (0-6) % Normal RBC Morphology Not Reportable Macrocytosis 1+ Sodium 116 L* 115 L* (133-145) mmol/L Potassium TNP TNP Chloride 83 L 83 L (101-111) mmol/L Carbon Dioxide TNP TNP Anion Gap TNP TNP BUN TNP TNP Creatinine TNP TNP Est GFR ( Amer) TNP TNP Est GFR (Non-Af Amer) TNP TNP BUN/Creatinine Ratio TNP TNP Glucose 56 L 48 L (70-100) mg/dL Calcium 8.9 8.3 L (8.6-10.3) mg/dL Total Bilirubin 0.60 (0.2-1.0) mg/dL AST TNP ALT 88 H (7-52) U/L Alkaline Phosphatase 230 H (34-104) U/L Total Creatine Kinase TNP C-Reactive Protein < 1.00 (< 5.00) mg/L Total Protein 6.5 (6.4-8.9) g/dL Albumin 4.5 (3.2-5.2) g/dL Globulin 2.0 (2-4) g/dL Albumin/Globulin Ratio 2.3 (1-3) Triglycerides 9677 mg/dL Cholesterol 1208 mg/dL LDL Cholesterol mg/dL LDL Cholesterol Direct 94 mg/dL HDL Cholesterol 23.4 mg/dL Amylase 51 (29-103) U/L Lipase 375 H (11.0-82.0) U/L Beta HCG, Quant < 0.60 mIU/mL Result Diagrams: 02/15/17 10:35 02/15/17 13:00 Lab Statement: Any lab studies that have been ordered have been reviewed, and results considered in the medical decision making process. - Additional Comments Diagnostic Additional Comments: US Abdomen. Interpreted by radiologist. Impression: Hepatomegaly with fatty infiltration of liver. ED physician has reviewed this report and agrees. Abdominal Pain Fem Course/Dx - Course Course Of Treatment: The pt is a 47 y/o M presenting to the ED c/o RUQ abd pain that began last week. The patient has a Hx of gallstones with pancreatitis and she says that her current pain is similar to that pain. The pt rates the pain 9/ 10. The pain radiates to her back. 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 The pain is aggravated by eating and is alleviated by nothing. Pt denies vomiting, diarrhea, constipation, fevers, and chills. The patients gallbladder has not yet been removed. The patient is accompanied by a male family member. Rest results shows sodium 115. The rest of the CMP is unable to be obtained because the sample is too lipemic. The CBC is within normal limits. Amylase was elevated to 375. The corrected sodium with the lipemic sample is 134 , so maybe this is pseudohyponatremia. The patient was given IV fluids and fentanyl. The US Abdomen reveals hepatomegaly with fatty infiltration of liver. I spoke with Dionicio Carter NP, hospitalist, who spoke with nolvia Resendizist, and they feel that the patient should be transferred to [facility] for treatment of hypertryglyceridemia with plasmapheresis. I discussed the case with Dr. Harding, physician at [facility], who accepts the patient for admission. Therefore, the patient will be transferred. - Diagnoses Differential Diagnosis: Positive: Constipation, Gall Bladder Disease, Pancreatitis, Urinary Tract Infection Provider Diagnoses: Acute pancreatitis, Hypertriglyceridemia - Provider Notifications Discussed Care Of Patient With: Dionicio Carter Time Discussed With Above Provider: 12:33 Instructed by Provider To: Other - I spoke with Dionicio Carter NP, hospitalist, who spoke with davide Resendiz, and they feel that the patient should be transferred to [facility] for treatment of dyslipidemia with plasmapheresis. I discussed the case with Dr. Harding, physician at [facility], who accepts the patient for admission. Discharge - Discharge Plan Condition: Stable Disposition: TRANS HIGHER LVL OF CARE FAC The documentation as recorded by the Aris mehta Thomas accurately reflects the service I personally performed and the decisions made by me, Thien Shi MD.
[2017-02-15 15:49] VITALS: BP 166/93
== END | disposition short-term general hospital (02) ==
LOC: ED 09:16 → MED 13:39 → UNDOADMIN 13:39
DX: K85.90 Acute pancreatitis without necrosis or infection, unspecified (principal); E78.1 Pure hyperglyceridemia; F17.200 Nicotine dependence, unspecified, uncomplicated; K76.0 Fatty (change of) liver, not elsewhere classified; Z32.02 Encounter for pregnancy test, result negative
CPT/HCPCS: 36415; 76705; 80048; 80053; 80061; 82150; 83690; 83721; 84702; 85025; 86140; 96361; 96374; 96375; 99283; J1885; J2405; J3010

== ENCOUNTER 2018-09-29 21:02 | Emergency (ER) | payer SELFPAY ==
--- NOTE | 2018-09-29 21:39 | ED ---
Substance Abuse/Use - HPI Summary HPI Summary: This patient is a 48 year old female presenting to [facility] with a chief complaint of depression. The patient states she was feeling depressed after her and her boyfriend broke up. The patient denies SI, HI. The patients friend brought her in and she refused to come into the ED when police became involved for alcohol intoxication. Buprenorp/Nalox 8-2 MG SL TAB [Suboxone 8-2 mg SL TAB*] 1 tab SL BID 05/21/13 [ History Confirmed 02/15/17] Acetaminophen TAB* [Tylenol TAB*] 650 mg PO Q4H PRN #0 tab 06/10/16 [Rx Confirmed 02/15/17] - History Of Current Complaint Chief Complaint: EDSubstanceAbuse Stated Complaint: 2208 Time Seen by Provider: 09/29/18 21:24 Hx Obtained From: Patient - Allergies/Home Medications Allergies/Adverse Reactions: Allergies Allergy/AdvReac Type Severity Reaction Status Date / Time No Known Allergies Allergy Verified 06/07/16 14:28 PMH/Surg Hx/FS Hx/Imm Hx Endocrine/Hematology History: Denies: Hx Diabetes Cardiovascular History: Denies: Hx Coronary Artery Disease History: Reports: Hx Kidney Stones Psychiatric History: Reports: Hx Substance Abuse - Surgical History Surgery Procedure, Year, and Place: None. - Immunization History Date of Tetanus Vaccine: unknown Date of Influenza Vaccine: fall 2015 Infectious Disease History: No Infectious Disease History: Reports: Hx Hepatitis Denies: Traveled Outside the [place] in Last 30 Days - Family History Known Family History: Positive: Other - aortic aneurysm - Social History Alcohol Use: Daily Hx Substance Use: Yes - Heroin, last use 15 yrs ago Substance Use Type: Reports: Marijuana Hx Tobacco Use: Yes Smoking Status (MU): Current Every Day Smoker Review of Systems Negative: Fever Positive: Depressed All Other Systems Reviewed And Are Negative: Yes Physical Exam - Summary Physical Exam Summary: VITAL SIGNS: Reviewed. GENERAL: Patient is a well-developed and nourished FEMALE who is lying comfortable in the stretcher. Patient is not in any acute respiratory distress. HEAD AND FACE: No signs of trauma. No ecchymosis, hematomas or skull depressions. No sinus tenderness. EYES: PERRLA, EOMI x 2, No injected conjunctiva, no nystagmus. EARS: Hearing grossly intact. Ear canals and tympanic membranes are within normal limits. MOUTH: Oropharynx within normal limits. NECK: Supple, trachea is midline, no adenopathy, no JVD, no carotid bruit, no c- spine tenderness, neck with full ROM CHEST: Symmetric, no tenderness at palpation LUNGS: Clear to auscultation bilaterally. No wheezing or crackles. CVS: Regular rate and rhythm, S1 and S2 present, no murmurs or gallops appreciated. ABDOMEN: Soft, non-tender. No signs of distention. No rebound no guarding, and no masses palpated. Bowel sounds are normal. EXTREMITIES: FROM in all major joints, no edema, no cyanosis or clubbing. NEURO: Alert and oriented x 3. No acute neurological deficits. Speech is normal and follows commands. SKIN: Dry and warm Triage Information Reviewed: Yes Vital Signs On Initial Exam: Initial Vitals Temp Pulse Resp BP Pulse Ox 97.7 F 106 20 143/91 90 09/29/18 21:17 09/29/18 21:17 09/29/18 21:17 09/29/18 21:17 09/29/18 21:17 Vital Signs Reviewed: Yes Diagnostics - Vital Signs Vital Signs Temp Pulse Resp BP Pulse Ox 09/29/18 21:17 97.7 F 106 20 143/91 90 - Laboratory Lab Statement: Any lab studies that have been ordered have been reviewed, and results considered in the medical decision making process. Course/Dx - Course Course Of Treatment: This patient is a 48 year old female presenting to [facility] with a chief complaint of depression. The patient was upset because she broke up with her boyfriend. Her friend brought her to the emergency room. Police got involved because she refused to get out of the car in front of the ED and appeared intoxicated. The patient is alert and oriented 3X. The patient is sober and can go home. A plan for discharge was discussed with the patient and she was agreeable with this plan. - Diagnoses Provider Diagnoses: Alcohol intoxication Discharge - Sign-Out/Discharge Documenting (check all that apply): Patient Departure - Discharge Patient Received Moderate/Deep Sedation with Procedure: No - Discharge Plan Condition: Stable Disposition: HOME Patient Education Materials: Alcohol Intoxication (ED) Referrals: Curtis Freeman NP [Primary Care Provider] - Additional Instructions: Return to ED with any new or worsening symptoms. - Attestation Statements Document Initiated by Scribe: Yes Documenting Scribe: Jeet Hart Provider For Whom Scribe is Documenting (Include Credential): Josemanuel Ayala MD Scribe Attestation: I, Jeet Hart, scribed for Josemanuel Ayala MD on 09/29/18 at 2314. Status of Scribe Document: Ready
[2018-09-30] VITALS: BP 131/85
== END 2018-09-30 | disposition home or self-care (01) ==
LOC: ED 21:02
DX: F10.129 Alcohol abuse with intoxication, unspecified (principal); Z72.0 Tobacco use
CPT/HCPCS: 99282

== ENCOUNTER 2022-02-01 09:48 | Observation (INO) ==
[2022-02-01 10:48] LABS: Red Blood Count 2.83 10^6 /uL (3.70-4.87); White Blood Count 5.7 10^3/uL (3.5-10.8)
[2022-02-01 10:49] LABS: ABS Basophils 0.1 10^3/ul (0-0.2); ABS Eosinophils 0.1 10^3/ul (0-0.6); ABS Lymphocytes 0.8 10^3/ul (1.0-4.8); ABS Monocytes 0.7 10^3/ul (0-0.8); ABS Neutrophils 4.1 10^3/ul (1.5-7.7); Eosinophil % 0.9 %; Hematocrit 29 % (35-47); Hemoglobin 9.2 g/dL (12.0-16.0); Lymphocyte % 14.4 %; Mean Corpuscular HGB Conc 33 g/dL (31-36); Mean Corpuscular Hemoglobin 33 pg (27-31); Mean Corpuscular Volume 101 fL (80-97); Mean Platelet Volume 8.6 fL (7.4-10.4); Nucleated Red Blood Cells % 0.1; Platelet Count 80 10^3/uL (150-450); Red Cell Distribution Width 18 % (10-15)
[2022-02-01 10:56] LABS: Albumin 3.4 g/dL (3.2-5.2); Albumin/Globulin Ratio 0.8 (1-3); Calcium 8.3 mg/dL (8.6-10.3); Globulin 4.1 g/dL (2-4); Potassium 3.1 mmol/L (3.5-5.0); Total Bilirubin 6.5 mg/dL (0.2-1.0); Total Protein 7.5 g/dL (6.4-8.9); eGFR CKD-EPI 115.8 (>60)
[2022-02-01 11:40] LABS: High Sensitivity Troponin 1 Hr 9 pg/mL (<15)
[2022-02-01 11:52] LABS: INR 1.47 (0.89-1.11)
[2022-02-01] MEDS ORDERED: Iohexol 350 (CONTRAST) 500 ML MDV IV ONE (13:28)
[2022-02-01] MEDS ORDERED: KCL 20 MEQ/100 ML IVPREMIX 20 MEQ/100 ML BAG IV ONE (19:16)
[2022-02-01] MEDS ORDERED: Lorazepam PYXIS KEY PRN (19:16)
[2022-02-01] MEDS ORDERED: LORazepam 2 mg VIAL 1 ml IV PUSH ONE (19:16)
[2022-02-01] MEDS ORDERED: Piperacillin/Tazobac ADVAN 3.375 GM in NS 0.9% 100 ml BAG 100 ML IV ONE (22:07)
[2022-02-02 01:00] LABS: Protime (Maddrey) 19.9 seconds (10.0-12.6)
[2022-02-02 01:13] LABS: Magnesium 1.1 mg/dL (1.9-2.7)
[2022-02-02 01:17] LABS: Urine Benzodiazepine Screen None Detected (None Detect); Urine Cannabinoids Screen None Detected (None Detect); Urine Opiates Screen None Detected (None Detect)
[2022-02-02 01:19] LABS: Alcohol, S < 13 mg/dL (<13); C Reactive Protein 4.64 mg/L (<8.01); LDH 297 U/L (140-271)
[2022-02-02 01:33] LABS: Urine Appearance Clear; Urine Bilirubin Negative (Negative); Urine Blood Negative (Negative); Urine Color Amber; Urine Glucose Negative (Negative); Urine Ketones Negative (Negative); Urine Nitrite Negative (Negative); Urine Protein Negative (Negative); Urine Specific Gravity 1.008 (1.002-1.030); Urine Urobilinogen Positive (Negative)
[2022-02-02 01:43] LABS: Total Bilirubin 7.1 mg/dL (0.2-1.0)
[2022-02-02 01:49] LABS: Hepatitis B Surface Antigen Nonreactive (Nonreactive)
[2022-02-02 01:54] LABS: Hepatitis A Ab IgM Negative (Negative); Hepatitis B Core IgM Nonreactive (Nonreactive)
[2022-02-02] MEDS ORDERED: Magnesium Sulf 4 GM/100 ML IV 4,000 MG/100 ML BAG IVPB ONE (02:41)
[2022-02-02 06:09] LABS: Hepatitis C Antibody Reactive (Negative)
[2022-02-02 06:32] LABS: INR 1.57 (0.89-1.11)
[2022-02-02 06:48] LABS: Albumin 3.4 g/dL (3.2-5.2); Albumin/Globulin Ratio 0.9 (1-3); Calcium 8.4 mg/dL (8.6-10.3); Magnesium 2.4 mg/dL (1.9-2.7); Potassium 3.4 mmol/L (3.5-5.0); Total Bilirubin 7.5 mg/dL (0.2-1.0); Total Protein 7.4 g/dL (6.4-8.9); eGFR CKD-EPI 110.4 (>60)
[2022-02-02 06:53] LABS: ABS Basophils 0.1 10^3/ul (0-0.2); ABS Eosinophils 0.1 10^3/ul (0-0.6); ABS Lymphocytes 1.2 10^3/ul (1.0-4.8); ABS Monocytes 0.5 10^3/ul (0-0.8); ABS Neutrophils 3.1 10^3/ul (1.5-7.7); Eosinophil % 1.5 %; Hematocrit 27 % (35-47); Hemoglobin 8.8 g/dL (12.0-16.0); Lymphocyte % 23.4 %; Mean Corpuscular HGB Conc 33 g/dL (31-36); Mean Corpuscular Hemoglobin 33 pg (27-31); Mean Corpuscular Volume 101 fL (80-97); Nucleated Red Blood Cells % 0.2; Platelet Count 70 10^3/uL (150-450); Red Blood Count 2.65 10^6 /uL (3.70-4.87); Red Cell Distribution Width 19 % (10-15)
[2022-02-02] MEDS ORDERED: KCL 20 MEQ/100 ML IVPREMIX 20 MEQ/100 ML BAG IV ONE (07:11)
[2022-02-02] MEDS: Nicotine PATCH 14 MG/24 HR PATCH TRANSDERM SCH (09:08)
[2022-02-02] MEDS ORDERED: Zosyn per Pharmacy NOTE FOLLOW UP SCH (10:00)
[2022-02-02] MEDS ORDERED: LORazepam 2 mg VIAL 1 ml IV PUSH SCH (10:00)
[2022-02-02] MEDS ORDERED: ZOSYN 3.375 GM x ONE DOSE over 30 miuntes IV ×2 (10:15→11:00)
[2022-02-02] MEDS: Multivitamins/Minerals TAB PO SCH (10:30)
[2022-02-02 13:28] LABS: Corrected Retic Count 1.6 % (0.5-1.5); Hematocrit for Retic CNT 28 % (35-47); Immature Retic Fraction 0.53; RBC Retic Count 2.75 10^6/uL (3.70-4.87)
[2022-02-02] MEDS ORDERED: ZOSYN 3.375 GM Q8H per EXTENDED INFUSION IV SCH (18:45)
[2022-02-02] MEDS: Buprenorp/Nalox 8-2 MG FILM SL FILM SCH (20:32)
[2022-02-02] MEDS ORDERED: Heparin 5000 UNITS/ML 1 mL VIAL SUBCUT SCH (21:00)
[2022-02-03 05:37] LABS: ABS Lymphocytes 0.7 10^3/ul (1.0-4.8); ABS Monocytes 0.4 10^3/ul (0-0.8); Hematocrit 27 % (35-47); Hemoglobin 8.6 g/dL (12.0-16.0); Lymphocyte % 11.5 %; Mean Corpuscular HGB Conc 33 g/dL (31-36); Mean Corpuscular Hemoglobin 33 pg (27-31); Mean Corpuscular Volume 100 fL (80-97); Mean Platelet Volume 9.1 fL (7.4-10.4); Nucleated Red Blood Cells % 0.2; Platelet Count 88 10^3/uL (150-450); Red Blood Count 2.65 10^6 /uL (3.70-4.87); Red Cell Distribution Width 18 % (10-15); White Blood Count 6.2 10^3/uL (3.5-10.8)
[2022-02-03 06:04] LABS: Albumin 3.3 g/dL (3.2-5.2); Albumin/Globulin Ratio 0.8 (1-3); Calcium 8.5 mg/dL (8.6-10.3); Globulin 3.9 g/dL (2-4); Magnesium 1.6 mg/dL (1.9-2.7); Phosphorus 3.3 mg/dL (2.5-5.0); Total Bilirubin 6.5 mg/dL (0.2-1.0); Total Protein 7.2 g/dL (6.4-8.9); eGFR CKD-EPI 116.4 (>60)
[2022-02-03] MEDS: Multivitamins/Minerals TAB PO SCH (08:46)
[2022-02-03] MEDS: Buprenorp/Nalox 8-2 MG FILM SL FILM SCH ×2 (08:47→20:19)
[2022-02-03] MEDS: Nicotine PATCH 14 MG/24 HR PATCH TRANSDERM SCH (08:47)
[2022-02-03] MEDS ORDERED: Enoxaparin 40 MG/0.4 ML SYR SUBCUT SCH (16:00)
[2022-02-03] MEDS ORDERED: Nicotine GUM 4MG FRUIT FLAVOR PO PRN (20:07)
[2022-02-04 06:20] LABS: ABS Basophils 0.1 10^3/ul (0-0.2); ABS Eosinophils 0.2 10^3/ul (0-0.6); ABS Lymphocytes 1.7 10^3/ul (1.0-4.8); ABS Monocytes 0.7 10^3/ul (0-0.8); ABS Neutrophils 6.5 10^3/ul (1.5-7.7); Eosinophil % 1.8 %; Hematocrit 26 % (35-47); Hemoglobin 8.4 g/dL (12.0-16.0); Lymphocyte % 18.8 %; Mean Corpuscular HGB Conc 33 g/dL (31-36); Mean Corpuscular Hemoglobin 34 pg (27-31); Mean Corpuscular Volume 103 fL (80-97); Mean Platelet Volume 8.7 fL (7.4-10.4); Platelet Count 97 10^3/uL (150-450); Red Cell Distribution Width 19 % (10-15); White Blood Count 9.2 10^3/uL (3.5-10.8)
[2022-02-04 06:21] LABS: INR 1.8 (0.89-1.11)
[2022-02-04 06:46] LABS: Albumin 3.2 g/dL (3.2-5.2); Albumin/Globulin Ratio 0.9 (1-3); Calcium 8.7 mg/dL (8.6-10.3); Direct Bilirubin 1.2 mg/dL (0.03-0.18); Globulin 3.7 g/dL (2-4); Indirect Bilirubin 2.9 mg/dL (0.3-1.0); Potassium 3.7 mmol/L (3.5-5.0); Total Bilirubin 4.1 mg/dL (0.2-1.0); Total Protein 6.9 g/dL (6.4-8.9); eGFR CKD-EPI 111.9 (>60)
[2022-02-04] MEDS: Buprenorp/Nalox 8-2 MG FILM SL FILM SCH (08:38)
[2022-02-04] MEDS: Multivitamins/Minerals TAB PO SCH (08:38)
[2022-02-04] MEDS: Nicotine PATCH 14 MG/24 HR PATCH TRANSDERM SCH (08:38)
[2022-02-04 12:01] VITALS: BP 128/70
== END 2022-02-04 17:00 | disposition home or self-care (01) ==
LOC: EDHOLD 09:48 → ED 09:48 → SUATTDRO 02-02 00:18 → SSU 02-02 05:41
PROVIDERS: ADMIT Student in an Organized Health Care Education/Training Program; ATTEND Internal Medicine